=== PATIENT | female | born 1995 | race Two or more races ===

== ENCOUNTER 2023-09-24 21:58 | Emergency (ER) | payer SELFPAY ==
[2023-09-24 22:16] VITALS: O2SAT 100
[2023-09-24] MEDS ORDERED: oxyCODONE 5 MG TABLET PO STA ×2 (22:22→23:33)
[2023-09-24] MEDS ORDERED: IBUPROFEN 800 MG TABLET PO STA ×2 (22:22→23:33)
--- NOTE | 2023-09-24 22:22 | ED Physician Documentation ---
PD HPI ABD PAIN - Stated complaint Stated Complaint: FLANK PX - Chief complaint Chief Complaint: Abd Pain - History obtained from History obtained from: Patient - Additional information Additional information: 28-year-old woman with history of metabolic syndrome and remote cholecystectomy. She has had 3 days of right pelvic pain radiating to the right low back. Associated with very mild nausea. No changes in bowel movements or bleeding. She is scheduled for an upcoming pelvic ultrasound but pain is worse now. That was scheduled because of painful menses. PD PAST MEDICAL HISTORY - Past Medical History Past Medical History: No - Past Surgical History Past Surgical History: No General: Cholecystectomy - Allergies Allergies/Adverse Reactions: Allergies Allergy/AdvReac Type Severity Reaction Status Date / Time No Known Drug Allergies Allergy Verified 09/24/23 22:09 - Social History Does the pt smoke?: No Smoking Status: Never smoker Does the pt drink ETOH?: No Does the pt have substance abuse?: No - Immunizations Immunizations are current?: Yes PD ED PE NORMAL - Vitals Vital signs reviewed: Yes - General General: Alert and oriented X 3, No acute distress - Abdomen Abdomen: Normal bowel sounds, Soft, Other (Mild right pelvic tenderness without surgical signs) - Neuro Neuro: Alert and oriented X 3 Results - Vitals Vitals: Vital Signs - 24 hr 09/24/23 09/24/23 22:09 22:38 Temperature 36.8 C 36.8 C Heart Rate 77 86 Respiratory 16 16 Rate Blood Pressure 116/68 116/68 O2 Saturation 100 100 Oxygen O2 Source Room air - Labs Labs: Laboratory Tests 09/24/23 09/24/23 09/24/23 22:18 22:23 22:23 WBC 16.0 H RBC 5.36 Hgb 10.5 L Hct 34.6 L MCV 64.6 L MCH 19.6 L MCHC 30.3 L RDW 15.8 H Plt Count 372 MPV 9.2 Neut # (Auto) Not Reportable Lymph # (Auto) Not Reportable [place] # (Auto) Not Reportable Eos # (Auto) Not Reportable Baso # (Auto) Not Reportable Absolute Nucleated RBC Not Reportable Total Counted 100 Band Neuts % (Manual) 0 Reactive Lymphs % (Man) 10 Abnorm Lymph % (Manual) 0 Nucleated RBC % Not Reportable Neutrophils # (Manual) 9.8 H Lymphocytes # (Manual) 4.8 H Monocytes # (Manual) 0.6 Eosinophils # (Manual) 0.8 H Basophils # (Manual) 0.0 Differential Comment MANUAL DIFFERENTIAL Manual Slide Review Indicated Platelet Estimate NORMAL (130-450,000) Platelet Morphology NORMAL APPEARANCE RBC Morph Micro Appear 3+ MICROCYTOSIS Sodium 136 Potassium 3.4 L Chloride 103 Carbon Dioxide 26 Anion Gap 7.0 BUN 14 Creatinine 0.8 Estimated GFR (MDRD) 84 L Glucose 92 Calcium 9.0 Total Bilirubin 0.4 AST 30 ALT 61 H Alkaline Phosphatase 72 Total Protein 7.5 Albumin 4.2 Globulin 3.3 Albumin/Globulin Ratio 1.3 Lipase 27 Urine Color YELLOW Urine Clarity HAZY Urine pH 6.0 Ur Specific [place] <=1.005 Urine Protein NEGATIVE Urine Glucose (UA) NEGATIVE Urine Ketones NEGATIVE Urine Occult Blood LARGE H Urine Nitrite NEGATIVE Urine Bilirubin NEGATIVE Urine Urobilinogen 0.2 (NORMAL) Ur Leukocyte Esterase LARGE H Urine RBC 6-10 H Urine WBC >25 H Ur Squamous Epith Cells MOD Squamous H Urine Bacteria Few Ur Microscopic Review INDICATED Urine Culture Comments NOT INDICATED Urine HCG, Qual NEGATIVE PD Medical Decision Making - ED course ED course: 28yo female with RLQ/pelvic pain to back. More c/w ovary than appy, but both on ddx. CBC with 16k WBC. Neg preg. Moderate microcytic anemia on CBC, ua contaminated. Care to Dr Ann at shift chg pending sono. Rec CT if neg given ddx appy. Departure - Departure Forms: PCP List
[2023-09-24 22:28] LABS: BASOPHILS % (AUTO) 0.3 %; EOSINOPHILS % (AUTO) 2.4 %; HCT - HEMATOCRIT 34.6 % (37.0-47.0); HGB - HEMOGLOBIN 10.5 g/dL (12.0-16.0); LYMPHOCYTES % (AUTO) 35.5 %; MEAN CORPUSCULAR HEMOGLOBIN 19.6 pg (27.0-31.0); MEAN CORPUSCULAR HGB CONC 30.3 g/dL (32.0-36.0); MEAN CORPUSCULAR VOLUME 64.6 fL (81.0-99.0); MEAN PLATELET VOLUME 9.2 fL (7.9-10.8); MONOCYTES % (AUTO) 6.3 %; NEUTROPHILS % (AUTO) 55.1 %; PLT - PLATELET COUNT 372 10^3/uL (130-450); RED BLOOD COUNT 5.36 10^6/uL (4.20-5.40); RED CELL DISTRIBUTION WIDTH 15.8 % (12.0-15.0)
[2023-09-24 22:29] LABS: BILIRUBIN,URINE NEGATIVE (NEGATIVE); GLUCOSE, URINE (UA) NEGATIVE (NEGATIVE); KETONES,URINE (UA) NEGATIVE (NEGATIVE); LEUKOCYTE ESTERASE, URINE LARGE (NEGATIVE); NITRITE,URINE NEGATIVE (NEGATIVE); OCCULT BLOOD,URINE LARGE (NEGATIVE); PROTEIN,URINE NEGATIVE (NEGATIVE); UROBILINOGEN,URINE 0.2 (NORMAL) E.U./dL (NORMAL)
[2023-09-24 22:30] LABS: CLARITY,URINE HAZY (CLEAR)
[2023-09-24 22:31] LABS: ABNORMAL LYMPHS % (MANUAL) 0 %; BAND NEUTROPHILS % (MANUAL) 0 %
[2023-09-24 22:31] LABS: HCG UR QUAL NEGATIVE
[2023-09-24 22:37] LABS: BACTERIA,URINE Few /HPF (None Seen); SQUAMOUS EPITHELIAL CELL,UR MOD Squamous (<= Few); WBC,URINE >25 /HPF (0-5)
[2023-09-24 22:45] LABS: ALBUMIN 4.2 g/dL (3.2-5.5); ALBUMIN/GLOBULIN RATIO 1.3 (1.0-2.2); BILIRUBIN,TOTAL 0.4 mg/dL (0.2-1.0); CREATININE 0.8 mg/dL (0.6-1.3); EOSINOPHILS # (MANUAL) 0.8 10^3/uL (0-0.7); LYMPHOCYTES # (MANUAL) 4.8 10^3/uL (1.5-3.5); LYMPHOCYTES % (MANUAL) 20 %; MONOCYTES # (MANUAL) 0.6 10^3/uL (0.0-1.0); NEUTROPHILS # (MANUAL) 9.8 10^3/uL (1.5-6.6); POTASSIUM 3.4 mmol/L (3.5-4.5); REACTIVE LYMPHS % (MANUAL) 10 %; TOTAL PROTEIN 7.5 g/dL (6.4-8.9)
[2023-09-24 22:46] LABS: DIFFERENTIAL COMMENT MANUAL DIFFERENTIAL; PLATELET ESTIMATE, MANUAL NORMAL (130-450,000) (NORMAL); PLATELET MORPHOLOGY NORMAL APPEARANCE (NORMAL)
[2023-09-24 22:48] LABS: SLIDE REVIEW? Indicated
[2023-09-24] MEDS ORDERED: SODIUM CHLORIDE 0.9% 1,000 ML IV STA (23:33)
--- NOTE | 2023-09-24 23:53 | Ultrasound Report ---
PROCEDURE: Pelvic w/Transvag+Doppler Comp INDICATIONS: pelvic pain TECHNIQUE: Real-time scanning was performed of the pelvic organs, with image documentation. Additional endovagi nal scanning was necessary due to incomplete visualization of the adnexal and endometrial structures by transabdominal scanning. Doppler interrogation was performed of the ovaries bilaterally. COMPARISON: None. FINDINGS: Uterus: Uterus is anteverted and normal in size at 8.5 x 4.2 x 4.6 cm. The myometrium is heterogene ous. The endometrium measures 8.2 mm in combined thickness. Fundal submucosal fibroid measuring 3.5 cm. Ovaries: The right ovary measures 3.1 x 2.3 x 2.7 cm, with a calculated ovarian volume of 10.1 cc. The left ovary measures 3.7 x 2.5 x 2.9 cm, with a calculated ovarian volume of 13.6 cc. Left ovaria n dominant follicle measuring 1.9 cm. Flow is seen to the bilateral ovaries. Appropriate blood flow t o the ovaries with Doppler interrogation. Less than 12 follicles can be seen in each ovary. No adn exal masses are seen. No cystic lesions measuring greater than 3 cm. Other: No pathologic free abdominal or pelvic fluid. IMPRESSION: 1.The ovaries are normal in appearance with flow. 2.Submucosal fundal fibroid measuring 3.5 cm. Reviewed by: Jadon Silveira MD on 09/24/2023 11:52 PM PST Approved by: Jadon Silveira MD on 09/24/2023 11:52 PM PST Station ID: [id number]
[2023-09-25] MEDS ORDERED: iohexoL-300 100 ML VIAL IVP ONE (00:33)
--- NOTE | 2023-09-25 00:37 | CT Report ---
PROCEDURE: Abdomen/Pelvis W INDICATIONS: RLQ pain CONTRAST: Omni 300, 100mls TECHNIQUE: After the administration of intravenous contrast, a CT scan of the abdomen and pelvis was performed. Images were recorded and evaluated at appropriate window settings. Reformats: coronal and sagittal. F or radiation dose reduction, the following was used: automated exposure control, adjustment of mA and /or kV according to patient size. COMPARISON: None. FINDINGS: Image quality: Excellent. Lung bases and heart: Unremarkable. Liver: No solid mass. Gallbladder and biliary tree: Surgically absent. No biliary dilation, accounting for post-cholecystec gavin state. Spleen: No splenomegaly. Pancreas: No pancreatic ductal dilation. Adrenals: No adrenal nodule. Kidneys and ureters: No hydronephrosis. No renal cystic lesion which requires follow up. No solid mas s. Bowel and peritoneum: No bowel distension. No pathologic free fluid. Moderate to large burden of stoo l throughout the colon. Normal appendix. Lymph nodes: No central or retroperitoneal adenopathy. Vessels: No infrarenal aortic aneurysm. PELVIS Reproductive organs: Unremarkable. Bladder: No abnormal wall thickening, accounting for underdistention. Pelvic lymph nodes: No pelvic adenopathy by size criteria. Bones: No aggressive osseous abnormality. Other: Small umbilical hernia containing fat. No inguinal hernias IMPRESSION: 1.Normal appendix. No acute findings within the abdomen or pelvis. 2.Moderate to large burden of stool throughout the colon, correlate for constipation. Reviewed by: Jadon Silveira MD on 09/25/2023 12:36 AM PST Approved by: Jadon Silveira MD on 09/25/2023 12:36 AM PST Station ID: [id number]
[2023-09-25 01:23] VITALS: BP 138/58
--- NOTE | 2023-09-25 02:11 | ED Physician Documentation ---
ED Addendum - Addendum Addendum: 09/25/23 02:09 Patient endorsed to me by Dr. Styles awaiting ultrasound. She did not have any acute findings in the right lower abdomen on ultrasound but did have a uterine fibroid which I discussed with her. Her CT showed a large stool burden but no signs of appendicitis or other abnormality in the right lower abdomen. Advised outpatient follow-up with her primary care provider. Return precautions given. Also discussed that she has anemia and elevated white blood cell count which can be followed up with her primary care provider. Impression 1 leukocytosis 2 right lower abdominal pain Condition stable Disposition Home
== END 2023-09-25 02:37 | disposition home or self-care (01) ==
LOC: ED 21:58
DX: R10.31 Right lower quadrant pain (principal); D72.829 Elevated white blood cell count, unspecified; D25.0 Submucous leiomyoma of uterus
CPT/HCPCS: 36415; 74177; 76830; 76856; 80053; 81001; 81025; 83690; 85025; 93975; 99283; 99284; A9270; Q9967; 81003; 87086